=== PATIENT | female | born 1990 ===

== ENCOUNTER → 2017-02-21 | Outpatient (REF) | LOC: WSOH 09:20 | DX: Z00.00 Encounter for general adult medical examination without abnormal findings (principal) ==

== ENCOUNTER → 2017-02-21 | Outpatient (REF) | LOC: WSOH 09:18 | DX: Z00.00 Encounter for general adult medical examination without abnormal findings (principal) ==

== ENCOUNTER → 2017-02-21 | Outpatient (REF) | LOC: WSOH 09:20 | DX: Z00.00 Encounter for general adult medical examination without abnormal findings (principal) | CPT/HCPCS: G0463 ==